=== PATIENT | female | born 1970 | race Caucasian/White ===

== ENCOUNTER 2018-09-25 03:01 | Emergency (ER) | payer OTHER ==
[2018-09-25] MEDS ORDERED: Sodium Chloride 0.9% 10 ML Syringe FLUSH PRN (03:47)
[2018-09-25] MEDS ORDERED: Morphine 4 MG/ML Syringe IVPUSH ONE (03:48)
[2018-09-25] MEDS ORDERED: Sodium Chloride 0.9% 1,000 ML IV ONE (03:48)
[2018-09-25] MEDS ORDERED: Ondansetron 4 MG/2 ML SDV IVPUSH ONE (03:48)
[2018-09-25] MEDS ORDERED: Ketorolac 30 MG/ML SDV IVPUSH ONE (05:45)
--- NOTE | 2018-09-25 05:55 | EDM.PDOC ---
ED HPI GENERAL MEDICAL PROBLEM - General Chief Complaint: Abdominal Pain Stated Complaint: right side pain Time Seen by Provider: 09/25/18 05:00 Source of Information: Reports: Patient History Limitations: Reports: No Limitations - History of Present Illness INITIAL COMMENTS - FREE TEXT/NARRATIVE: 47-year-old female who reports at 1:30 this morning she awoke with severe pain in her right mid back and flank that radiated to her right abdomen and to her right groin.she reports that the pain was a sharp and searing pain that she rated as a 9/10. There were no exacerbating or alleviating factors. She did have some nausea and dry heaving. She has never had pain like this before. She' s had no dysuria. There's been no hematuria. No fevers or chills. She had been completely normal yesterday and had no antecedent problems prior to bed.there are no other associated signs or symptoms. There are no other modifying factors. Onset: Today (1:30 AM) Duration: Getting Worse Location: Reports: Abdomen, Back Quality: Reports: Ache, Sharp, Other (searing) Severity: Severe Improves with: Reports: None Worsens with: Reports: None Context: Reports: Other (awoke her from sleep) Associated Symptoms: Reports: Nausea/Vomiting Treatments ADVANCED CLINICAL SPECIALIST: Reports: Other (see below) (nothing) right flank Pain Score (Numeric/FACES): 9 - Related Data Allergies Allergy/AdvReac Type Severity Reaction Status Date / Time seasonal Allergy Other Uncoded 09/25/18 04:39 some animals Allergy Other Uncoded 09/25/18 04:39 Home Meds: Home Meds Cholecalciferol (Vitamin D3) [Vitamin D] 09/25/18 [History] Estradiol/Progesterone [Bijuva 1 mg-100 mg Capsule] 09/25/18 [History] Hydrocodone/Acetaminophen [[place] 5-325 Tablet] 1 - 2 tab PO Q6H PRN #14 tablet 09/25/18 [Rx] Ondansetron [Zofran ODT] 4 mg PO Q6H PRN #8 tab.dis 09/25/18 [Rx] Sulfamethoxazole/Trimethoprim [Bactrim Ds Tablet] 1 each PO BID 7 Days #14 tablet 09/25/18 [Rx] Tamsulosin HCl [Flomax] 0.4 mg PO BEDTIME #7 cap.er.24h 09/25/18 [Rx] Past Medical History Musculoskeletal History: Reports: Arthritis (osteo-) - Past Surgical History GI Surgical History: Reports: Cholecystectomy Female Surgical History: Reports: Other (See Below) (laparoscopy 2 for endometriosis) Social & Family History - Tobacco Use Smoking Status *Q: Never Smoker - Alcohol Use Alcohol Use History: Yes Alcohol Use Frequency: Socially - Recreational Drug Use Recreational Drug Use: No ED ROS GENERAL - Review of Systems Review Of Systems: See Below Constitutional: Reports: No Symptoms HEENT: Reports: No Symptoms Respiratory: Reports: No Symptoms Cardiovascular: Reports: No Symptoms GI/Abdominal: Reports: Abdominal Pain, Nausea : Reports: Flank Pain (right sided) Musculoskeletal: Reports: Back Pain (right mid back pain) Skin: Reports: No Symptoms Neurological: Reports: No Symptoms Hematologic/Lymphatic: Reports: No Symptoms Immunologic: Reports: No Symptoms ED EXAM, GI/ABD - Physical Exam Exam: See Below Exam Limited By: No Limitations General Appearance: Alert, WD/WN, No Apparent Distress. No: Mild Distress Eyes: Bilateral: Normal Appearance, Nystagmus Ears: Normal External Exam, Normal Canal Nose: Normal Inspection, Normal Mucosa, No Blood Throat/Mouth: Normal Inspection, Normal Lips, Normal Teeth, Normal Oropharynx, Normal Voice, No Airway Compromise Head: Atraumatic, Normocephalic Neck: Normal Inspection, Supple, Non-Tender, Full Range of Motion Respiratory/Chest: No Respiratory Distress, Lungs Clear, Normal Breath Sounds, No Accessory Muscle Use, Chest Non-Tender Cardiovascular: Normal Peripheral Pulses, Regular Rate, Rhythm, JVD GI/Abdominal Exam: Normal Bowel Sounds, Soft, Non-Tender, No Distention, No Mass Back Exam: Normal Inspection, Full Range of Motion. No: CVA Tenderness (R), CVA Tenderness (L) Extremities: Normal Inspection, Normal Range of Motion, Non-Tender, No Pedal Edema, Normal Capillary Refill, Pedal Edema Neurological: Alert, Oriented, CN II-XII Intact, Normal Cognition, No Motor/ Sensory Deficits Psychiatric: Normal Affect, Normal Mood Skin Exam: Warm, Dry, Intact, Normal Color Course - Vital Signs Last Recorded V/S: Last Vital Signs Temp 36.9 C 09/25/18 03:15 Pulse 70 09/25/18 05:50 Resp 16 09/25/18 05:50 BP 110/65 09/25/18 05:50 Pulse Ox 98 09/25/18 05:50 - Orders/Labs/Meds Orders: Active Orders 24 hr Category Date Time Status CULTURE URINE [RM] Stat Lab 09/25/18 03:20 Received Sodium Chloride 0.9% [Saline Flush] Med 09/25/18 03:47 Active 10 ml FLUSH ASDIRECTED PRN Peripheral IV Insertion Adult [OM.PC] Routine Oth 09/25/18 03:47 Ordered Medication Orders Sodium Chloride (Saline Flush) 10 ml FLUSH ASDIRECTED PRN PRN Reason: Keep Vein Open Last Admin: 09/25/18 03:50 Dose: 10 ml Labs: Laboratory Tests 09/25/18 09/25/18 09/25/18 Range/Units 03:20 04:00 04:00 WBC 9.0 (4.5-12.0) X10-3/uL RBC 4.43 (3.23-5.20) x10(6)uL Hgb 13.8 (11.5-15.5) g/dL Hct 39.6 (30.0-51.3) % MCV 89.5 (80-96) fL MCH 31.3 (27.7-33.6) pg MCHC 35.0 (32.2-35.4) g/dL RDW 12.0 (11.5-15.5) % Plt Count 227 (125-369) X10(3)uL MPV 8.3 (7.4-10.4) fL Neut % (Auto) 66.4 (46-82) % Lymph % (Auto) 26.1 (13-37) % Blair % (Auto) 4.5 (4-12) % Eos % (Auto) 2 (1.0-5.0) % Baso % (Auto) 1 (0-2) % Neut # (Auto) 6.0 (1.6-8.3) # Lymph # (Auto) 2.3 (0.6-5.0) # Blair # (Auto) 0.4 (0.0-1.3) # Eos # (Auto) 0.2 (0.0-0.8) # Baso # (Auto) 0.1 (0.0-0.2) # Sodium 143 (135-145) mmol/L Potassium 3.5 (3.5-5.3) mmol/L Chloride 107 (100-110) mmol/L Carbon Dioxide 27 (21-32) mmol/L BUN 23 H (7-18) mg/dL Creatinine 1.0 (0.55-1.02) mg/dL Est Cr Clr Drug Dosing TNP Estimated GFR (MDRD) 60 (>60) BUN/Creatinine Ratio 23.0 H (9-20) Glucose 123 H (80-116) mg/dL Calcium 9.2 (8.6-10.2) mg/dL Total Bilirubin 0.4 (0.1-1.3) mg/dL AST 20 (5-25) IU/L ALT 38 H (12-36) U/L Alkaline Phosphatase 94 (56-112) IU/L C-Reactive Protein (0.5-0.9) mg/dL Total Protein 6.9 (6.0-8.0) g/dL Albumin 3.6 (3.5-5.2) g/dL Globulin 3.3 g/dL Albumin/Globulin Ratio 1.1 Urine Color Yellow (YELLOW) Urine Appearance Cloudy (CLEAR) Urine pH 5.0 (5.0-6.5) Ur Specific Burns 1.025 (1.010-1.025) Urine Protein Negative (NEGATIVE) mg/dL Urine Glucose (UA) Normal (NORMAL) mg/dL Urine Ketones Negative (NEGATIVE) mg/dL Urine Occult Blood Negative (NEGATIVE) Urine Nitrite Negative (NEGATIVE) Urine Bilirubin Negative (NEGATIVE) Urine Urobilinogen Normal (NEGATIVE) mg/dL Ur Leukocyte Esterase Small H (NEGATIVE) Urine RBC 0-5 (0-5) Urine WBC 5-10 H (0-5) Ur Squamous Epith Cells Many H (NS,R,O) Urine Bacteria Many H (NS) 09/25/18 Range/Units 04:00 WBC (4.5-12.0) X10-3/uL RBC (3.23-5.20) x10(6)uL Hgb (11.5-15.5) g/dL Hct (30.0-51.3) % MCV (80-96) fL MCH (27.7-33.6) pg MCHC (32.2-35.4) g/dL RDW (11.5-15.5) % Plt Count (125-369) X10(3)uL MPV (7.4-10.4) fL Neut % (Auto) (46-82) % Lymph % (Auto) (13-37) % Blair % (Auto) (4-12) % Eos % (Auto) (1.0-5.0) % Baso % (Auto) (0-2) % Neut # (Auto) (1.6-8.3) # Lymph # (Auto) (0.6-5.0) # Blair # (Auto) (0.0-1.3) # Eos # (Auto) (0.0-0.8) # Baso # (Auto) (0.0-0.2) # Sodium (135-145) mmol/L Potassium (3.5-5.3) mmol/L Chloride (100-110) mmol/L Carbon Dioxide (21-32) mmol/L BUN (7-18) mg/dL Creatinine (0.55-1.02) mg/dL Est Cr Clr Drug Dosing Estimated GFR (MDRD) (>60) BUN/Creatinine Ratio (9-20) Glucose (80-116) mg/dL Calcium (8.6-10.2) mg/dL Total Bilirubin (0.1-1.3) mg/dL AST (5-25) IU/L ALT (12-36) U/L Alkaline Phosphatase (56-112) IU/L C-Reactive Protein < 0.2 L (0.5-0.9) mg/dL Total Protein (6.0-8.0) g/dL Albumin (3.5-5.2) g/dL Globulin g/dL Albumin/Globulin Ratio Urine Color (YELLOW) Urine Appearance (CLEAR) Urine pH (5.0-6.5) Ur Specific Burns (1.010-1.025) Urine Protein (NEGATIVE) mg/dL Urine Glucose (UA) (NORMAL) mg/dL Urine Ketones (NEGATIVE) mg/dL Urine Occult Blood (NEGATIVE) Urine Nitrite (NEGATIVE) Urine Bilirubin (NEGATIVE) Urine Urobilinogen (NEGATIVE) mg/dL Ur Leukocyte Esterase (NEGATIVE) Urine RBC (0-5) Urine WBC (0-5) Ur Squamous Epith Cells (NS,R,O) Urine Bacteria (NS) Meds: Medications Generic Name Dose Route Start Last Admin Trade Name Karin PRN Reason Stop Dose Admin Sodium Chloride 10 ml 09/25/18 03:47 09/25/18 03:50 Saline Flush FLUSH 10 ml ASDIRECTED PRN Administration Keep Vein Open Discontinued Medications Generic Name Dose Route Start Last Admin Trade Name Karin PRN Reason Stop Dose Admin Sodium Chloride 1,000 mls @ 999 mls/hr 09/25/18 03:48 09/25/18 04:00 Normal Saline IV 09/25/18 04:48 999 mls/hr .BOLUS ONE Administration Ketorolac Tromethamine 30 mg 09/25/18 05:45 09/25/18 05:50 Toradol IVPUSH 09/25/18 05:46 30 mg ONETIME ONE Administration Morphine Sulfate 4 mg 09/25/18 03:48 09/25/18 04:00 Morphine IVPUSH 09/25/18 03:49 4 mg ONETIME ONE Administration Ondansetron HCl 4 mg 09/25/18 03:48 09/25/18 04:00 Zofran IVPUSH 09/25/18 03:49 4 mg ONETIME ONE Administration Tamsulosin HCl 0.4 mg 09/25/18 06:04 Flomax PO 09/25/18 06:05 ONETIME ONE Trimethoprim/Sulfamethoxazole 1 tab 09/25/18 06:04 Septra Ds PO 09/25/18 06:05 ONETIME ONE - Re-Assessments/Exams Free Text/Narrative Re-Assessment/Exam: 09/25/18 05:50: Patient remains with pain at a 2-3/10 discomfort. She has had urine output without recurrence of her pain. Her laboratory tests are reassuring. Her urine does have home white blood cells and bacteria and a culture is pending. Her history and presentation is area consistent with renal colic. We do not have a functioning CT scan at this time but her pain much improved, her reassuring labs and no evidence of a significant infection I feel that she may be discharged with prescriptions for pain and nausea control and with a prescription for Flomax and an antibiotic that she may be discharged with follow-up with her primary doctor. She in her are in agreement with this plan. I did offer the alternative of sending her to a facility with CT scan capability available but she declined that at this point. The patient is being given Toradol 30 mg IV at this point are to discharge and I am giving her a dose of antibiotics as well. Departure - Departure Time of Disposition: 06:00 Disposition: Home, Self-Care 01 Condition: Good (improved) Clinical Impression: Flank pain, Renal colic on right side - Discharge Information Prescriptions: Hydrocodone/Acetaminophen [[place] 5-325 Tablet] 1 - 2 tab PO Q6H PRN #14 tablet PRN Reason: Moderate to severe pain Ondansetron [Zofran ODT] 4 mg PO Q6H PRN #8 tab.dis PRN Reason: Nausea/Vomiting Sulfamethoxazole/Trimethoprim [Bactrim Ds Tablet] 1 each PO BID 7 Days #14 tablet Tamsulosin HCl [Flomax] 0.4 mg PO BEDTIME #7 cap.er.24h Instructions: Kidney Stones, [id number], Opioid Pain Medicine Information, [id number], Flank Pain, Adult, [id number] Referrals: PCP,None [Primary Care Provider] - Forms: ED Department Discharge Additional Instructions: Your blood tests were reassuringly normal. Your urine test did appear to have some evidence of infection. This was sent for culture. You signs and symptoms are most consistent with this being a kidney stone. We were not able to do a CT scan to either prove or deny this in the emergency department.ou did improve significantly after pain medication was given. He should continue to drink plenty of fluids. Medication as prescribed (hydrocodone 5/325, Flomax, Bactrim DS, Zofran 4 mg ODT). You need to strain your urine he stones that you might pass to take with you to see her doctor. You will need to follow-up with her primary doctor this coming week. Back to an emergency department for fever, marked increase in pain, unrelenting vomiting or any other concerning sign or symptom - My Orders Last 24 Hours: My Active Orders 09/25/18 03:20 CULTURE URINE [RM] Stat 09/25/18 03:47 Sodium Chloride 0.9% [Saline Flush] 10 ml FLUSH ASDIRECTED PRN Peripheral IV Insertion Adult [OM.PC] Routine - Assessment/Plan Last 24 Hours: My Active Orders 09/25/18 03:20 CULTURE URINE [RM] Stat 09/25/18 03:47 Sodium Chloride 0.9% [Saline Flush] 10 ml FLUSH ASDIRECTED PRN Peripheral IV Insertion Adult [OM.PC] Routine
[2018-09-25] MEDS ORDERED: Sulfamethoxazole/Trimethoprim 800-160 MG Tab PO ONE (06:04)
[2018-09-25] MEDS ORDERED: Tamsulosin 0.4 MG Cap.ER PO ONE (06:04)
== END 2018-09-25 06:10 | disposition home or self-care (01) ==
LOC: FB.ED 03:01
DX: N23 Unspecified renal colic (principal); R10.9 Unspecified abdominal pain; M19.90 Unspecified osteoarthritis, unspecified site; Z91.09 Other allergy status, other than to drugs and biological substances; B96.29 Other Escherichia coli [E. coli] as the cause of diseases classified elsewhere
CPT/HCPCS: 36415; 80053; 81001; 85025; 86140; 87086; 87088; 87186; 96361; 96374; 96375; 99284; A9270; J1885; J2270; J2405; J7030